=== PATIENT | male | born 1985 | race Two or more races ===

== ENCOUNTER 2023-04-14 01:22 | Emergency (ER) | payer OTHER ==
[~2023-04-14] VITALS: Ht 170.2 cm; Wt 81.6 kg
[2023-04-14] MEDS ORDERED: KETOROLAC TROMETHAMINE INJ 60 MG/2 ML VIAL IM ONE ×2 (01:39→02:00)
[2023-04-14] MEDS ORDERED: CARISOPRODOL 350 MG TABLET ONE (01:39)
[2023-04-14] MEDS ORDERED: dexaMETHasone SOD PHOSPHATE 10 MG/ML VIAL ONE (01:39)
[2023-04-14] MEDS ORDERED: dexaMETHasone SOD PHOSPHATE 4 MG/ML VIAL IM ONE (02:00)
[2023-04-14] MEDS ORDERED: CARISOPRODOL 350 MG TABLET PO ONE (02:00)
[2023-04-14] MEDS ORDERED: IBUP-1957 PO (02:24)
[2023-04-14] MEDS ORDERED: CARI350T PO (02:24)
[2023-04-14] MEDS ORDERED: PRED50TA PO (02:24)
[2023-04-14] MEDS ORDERED: HYDR-3980 PO (02:24)
[2023-04-14 03:16] VITALS: BP 152/88; TEMP 98.1; O2SAT 98
== END 2023-04-14 04:56 | disposition home or self-care (01) ==
LOC: ER 01:57 → EDBD 01:57 → ER 04:56
DX: S32.010A Wedge compression fracture of first lumbar vertebra, initial encounter for closed fracture (principal); G89.29 Other chronic pain; M54.50 Low back pain, unspecified; X58.XXXA Exposure to other specified factors, initial encounter; Y93.89 Activity, other specified; Y92.89 Other specified places as the place of occurrence of the external cause; Y99.8 Other external cause status
CPT/HCPCS: 99285; 72131; 96372 ×2; 72128; J1100; J1885